=== PATIENT | male | born 1975 | race American Indian/Alaskan Native ===

== ENCOUNTER 2017-02-09 13:19 | Emergency (ER) | payer SELFPAY ==
[2017-02-09 15:04] LABS: Basophils % (Auto) 0.9 % (0.0-1.8); Eosinophils % (Auto) 1.7 % (0.0-4.3); Hematocrit 50.2 % (35.5-45.6); Mean Corpuscular HGB Conc 32 % (32-34); Mean Corpuscular Hemoglobin 27 pg (28-32); Mean Corpuscular Volume 85 fl (84-94); Platelet Count 259 K/mm3 (140-440); Red Blood Count 5.94 M/mm3 (3.65-5.03); Red Cell Distribution Width 15.3 % (13.2-15.2); White Blood Count 6.1 K/mm3 (4.5-11.0)
[2017-02-09 15:42] LABS: Anion Gap 16 mmol/L; BUN/Creatinine Ratio 17.77; Blood Urea Nitrogen 16 mg/dL (9-20); Calcium 8.9 mg/dL (8.4-10.2); Carbon Dioxide 28 mmol/L (22-30); Chloride 99.6 mmol/L (98-107); Glucose 130 mg/dL (75-100); Potassium 5.7 mmol/L (3.6-5.0); Sodium 138 mmol/L (137-145)
[2017-02-09] MEDS ORDERED: NORCO 5/325 ONE (17:19)
[2017-02-09] MEDS ORDERED: NORCO 5/325 PO ONE (17:21)
[2017-02-09] MEDS ORDERED: CATAPRES ONE (18:44)
[2017-02-09] MEDS ORDERED: CATAPRES PO ONE (18:44)
[2017-02-09 19:50] VITALS: BP 138/93
== END 2017-02-09 20:30 | disposition left against medical advice (07) ==
LOC: ED 13:19
DX: Z53.21 Procedure and treatment not carried out due to patient leaving prior to being seen by health care provider (principal)
CPT/HCPCS: 36415; 80048; 84484; 85025; 93005; 93010

== ENCOUNTER 2021-03-06 16:30 | Emergency (ER) | payer SELFPAY ==
--- NOTE | 2021-03-06 18:02 | Ultrasound Report ---
ULTRASOUND SCROTUM INDICATION: Left testicular pain. COMPARISON None available. FINDINGS: RIGHT TESTICLE: 5.1 x 2.0 x 2.9 cm. Normal echogenicity. Normal color flow. No solid or cystic lesion s. RIGHT EPIDIDYMIS: No significant abnormality. LEFT TESTICLE: 4.9 x 2.1 x 3.0 cm. Normal echogenicity. Normal color flow. No solid or cystic lesions . LEFT EPIDIDYMIS: No significant abnormality. HYDROCELE: Small right hydrocele. VARICOCELE: A left varicocele is seen with vessels measuring up to 3.5 mm in diameter. ADDITIONAL FINDINGS: None. IMPRESSION: 1. Small right hydrocele. 2. Left varicocele. Signer Name: Justice Cárdenas MD Signed: 03/06/2021 5:58 PM Workstation Name: [id number]
[2021-03-06 19:20] LABS: Bilirubin,Urine NEG (Negative); Blood,Urine NEG (Negative); Color,Urine Yellow (Yellow); Mucus,Urine FEW /HPF
--- NOTE | 2021-03-06 20:39 | Emergency Department Report ---
ED Male HPI - General Chief complaint: Pain General Stated complaint: LEFT TESTICLE PAIN Time Seen by Provider: 03/06/21 20:31 Source: patient Mode of arrival: Ambulatory Limitations: No Limitations - History of Present Illness Initial comments: 46-year-old male presents to the ER today with complaints of left testicular pain. Patient states that his pain started last night. He reports that the pain shoots up into his lower abdomen. He reports associated swelling and intermittent dysuria. She denies any hematuria, urinary frequency, back pain or redness of the testicle. He states that he has been sexually active with his for several years. He denies any penile discharge or concern for STD. He denies any fever, chills, nausea or vomiting. He denies any male history of testicular torsion. He denies similar symptoms in the past. MD Complaint: testicle pain -: Last night - Related Data Previous Rx's Medication Instructions Recorded Last Taken Type Amlodipine Besylate [Norvasc] 5 mg PO DAILY #30 tablet 03/06/21 Unknown Rx Ibuprofen [Motrin] 600 mg PO Q8H PRN #30 tablet 03/06/21 Unknown Rx Allergies Allergy/AdvReac Type Severity Reaction Status Date / Time aspirin Allergy Unknown Verified 02/09/17 13:40 ED Review of Systems ROS: Stated complaint: LEFT TESTICLE PAIN Other details as noted in HPI Comment: All other systems reviewed and negative Constitutional: denies: chills, fever Eyes: denies: eye pain, eye discharge, vision change ENT: denies: ear pain, throat pain, dental pain, hearing loss, congestion Respiratory: denies: cough, shortness of breath, wheezing Cardiovascular: denies: chest pain, palpitations Gastrointestinal: denies: abdominal pain, nausea, vomiting, diarrhea, constipation, hematemesis, melena, hematochezia Genitourinary: dysuria, testicular pain, other (left testicular swelling ). denies: urgency, frequency, hematuria, discharge Musculoskeletal: denies: back pain, joint swelling, arthralgia Skin: denies: rash, lesions, change in color, change in hair/nails, pruritus Neurological: denies: headache, weakness, numbness, paresthesias, confusion, abnormal gait, vertigo Psychiatric: denies: anxiety, depression, auditory hallucinations, visual hallucinations, homicidal thoughts, suicidal thoughts Hematological/Lymphatic: denies: easy bleeding, easy bruising ED Past Medical Hx - Past Medical History Previous Medical History?: No - Surgical History Past Surgical History?: No - Social History Smoking Status: Never Smoker - Medications Home Medications: Home Medications Medication Instructions Recorded Confirmed Last Taken Type Amlodipine Besylate [Norvasc] 5 mg PO DAILY #30 tablet 03/06/21 Unknown Rx Ibuprofen [Motrin] 600 mg PO Q8H PRN #30 tablet 03/06/21 Unknown Rx ED Physical Exam - General Limitations: No Limitations General appearance: alert, in no apparent distress - Head Head exam: Present: atraumatic, normocephalic - Eye Eye exam: Present: normal appearance, PERRL, EOMI Pupils: Present: normal accommodation - Neck Neck exam: Present: normal inspection, full ROM - Respiratory Respiratory exam: Present: normal lung sounds bilaterally. Absent: respiratory distress, wheezes, rales, rhonchi, stridor - Cardiovascular Cardiovascular Exam: Present: regular rate, normal rhythm, normal heart sounds - GI/Abdominal GI/Abdominal exam: Present: soft. Absent: distended, tenderness, guarding, rebound, rigid - exam: Present: normal inspection, testicular tenderness (Mild left testicular ttp ), other (Burner Tender present at time of exam). Absent: urethral discharge, scrotal swelling, vertical testicular lie, circumcision External exam: Present: normal external exam, other (no inguinal hernia ) - Extremities Exam Extremities exam: Present: normal inspection - Neurological Exam Neurological exam: Present: alert, oriented X3, CN II-XII intact, normal gait - Psychiatric Psychiatric exam: Present: normal affect, normal mood - Skin Skin exam: Present: intact ED Course Vital Signs 03/06/21 03/06/21 16:46 20:58 Temperature 99 F Pulse Rate 76 71 Respiratory 16 18 Rate Blood Pressure 185/122 163/103 [Left] O2 Sat by Pulse 99 98 Oximetry ED Medical Decision Making - Radiology Data Radiology results: report reviewed Patient: LC KING MR #: [id number] : 1975 Acct:[id number] Age/Sex: 46 / M ADM Date: 03/06/21 Loc: ED Attending Dr: Ordering Physician: OMID ADAMS Date of Service: 03/06/21 Procedure(s): US testicular doppler comp Accession Number(s): [id number] cc: OMID ADAMS ULTRASOUND SCROTUM INDICATION: Left testicular pain. COMPARISON None available. FINDINGS: RIGHT TESTICLE: 5.1 x 2.0 x 2.9 cm. Normal echogenicity. Normal color flow. No solid or cystic lesions. RIGHT EPIDIDYMIS: No significant abnormality. LEFT TESTICLE: 4.9 x 2.1 x 3.0 cm. Normal echogenicity. Normal color flow. No solid or cystic lesions. LEFT EPIDIDYMIS: No significant abnormality. HYDROCELE: Small right hydrocele. VARICOCELE: A left varicocele is seen with vessels measuring up to 3.5 mm in diameter. ADDITIONAL FINDINGS: None. IMPRESSION: 1. Small right hydrocele. 2. Left varicocele. Signer Name: Justice Cárdenas MD Signed: 03/06/2021 5:58 PM Workstation Name: [id number] Transcribed By: KESHA Dictated By: Justice Cárdenas MD Electronically Authenticated By: Justice Cárdenas MD Signed Date/Time: 03/06/211757 DD/ 55 TD/TT: - Medical Decision Making Urinalysis reviewed and unremarkable. Testicular ultrasound shows left varicocele, and right hydrocele but otherwise negative for any torsion or any other acute abnormalities. Physical exam shows a well-appearing male, who denies any significant pain distress, he is not toxic or ill-appearing, he is neurologically intact with a normal gait and he has a soft nontender abdomen. Exam does not show any signs of significant testicle scrotal cellulitis, abscess, or gangrene. Exact cause of his pain at this time unclear. At this time there is no indication for any additional testing, admission or specialist consult. Patient blood pressure was noted to be elevated at triage. Patient was questioned about his blood pressure, and he does admit that he was told in the past that his blood pressure has been elevated but he never followed up with a PCP to get treated nor has he been started on blood pressure medications the past. He currently has no symptoms related to his elevated blood pressure but given the trend of elevation to his blood pressure from his previous visit including today elevation in blood pressure I will start patient on low-dose Norvasc given referral to local PCP for follow-up. Stressed to patient the importance of taking the blood pressure medication and being compliant with it. He will also be given referral to local urologist for follow-up. Patient expressed understanding of all instructions and agree with plan. Patient stable at time of discharge. Critical care attestation.: If time is entered above; I have spent that time in minutes in the direct care of this critically ill patient, excluding procedure time. ED Disposition Clinical Impression: Testicular pain, left, Left varicocele, Uncontrolled hypertension Disposition: HOME / SELF CARE / HOMELESS Is pt being admited?: No Does the pt Need Aspirin: No Condition: Stable Instructions: Varicocele, Hypertension, Adult, [id number], Testicular Self- Exam, [id number], Managing Your Hypertension, Hypertension (ED) Additional Instructions: I recommend taking the ibuprofen as prescribed. Also recommend following up with the primary care doctor listed in discharge instruction for continued monitoring of your blood pressure. In the meantime I do recommend that you start the low-dose Norvasc prescribed to you today to keep your blood pressure under control. Also recommend modifying her diet by decreasing her salt intake including sodas. Follow up with the urologist listed on your discharge instructions next week especially if you continue having pain in your left testicle. Return to the ER if your symptoms changes or worsens in any way. Prescriptions: Ibuprofen [Motrin] 600 mg PO Q8H PRN #30 tablet PRN Reason: Pain Amlodipine Besylate [Norvasc] 5 mg PO DAILY #30 tablet Referrals: WILLEM HAJI MD [Staff Physician] - 7-10 days (Urologist) [facility] [Provider Group] - 3-5 Days [facility] [Provider Group] - 3-5 Days Time of Disposition: 20:50
[2021-03-06] MEDS ORDERED: IBUPROFEN 600 MG TAB PO ONE (20:45)
[2021-03-06 20:59] VITALS: BP 163/103
== END 2021-03-06 21:12 | disposition home or self-care (01) ==
LOC: ED 16:30
DX: I86.1 Scrotal varices (principal); N50.812 Left testicular pain; I10 Essential (primary) hypertension; Z88.6 Allergy status to analgesic agent
CPT/HCPCS: 81001; 93975; 99284